=== PATIENT | female | born 1970 | race Caucasian/White ===

== ENCOUNTER 2018-11-22 08:00 | Outpatient (CLI) | payer OTHER ==
[2018-11-22 19:15] LABS: BASOPHILS # (AUTO) 0.1 10^3/uL (0.0-0.1); BASOPHILS % (AUTO) 0.7 %; EOSINOPHILS # (AUTO) 0.1 10^3/uL (0.0-0.7); EOSINOPHILS % (AUTO) 1.8 %; HGB - HEMOGLOBIN 13.2 g/dL (12.0-16.0); LYMPHOCYTES # (AUTO) 2.7 10^3/uL (1.5-3.5); LYMPHOCYTES % (AUTO) 35.1 %; MEAN CORPUSCULAR HEMOGLOBIN 31.2 pg (27.0-31.0); MEAN CORPUSCULAR HGB CONC 32.5 g/dL (32.0-36.0); MEAN CORPUSCULAR VOLUME 96.2 fL (81.0-99.0); MEAN PLATELET VOLUME 8.7 fL (7.9-10.8); MONOCYTES # (AUTO) 0.4 10^3/uL (0.0-1.0); MONOCYTES % (AUTO) 5.9 %; NEUTROPHILS # (AUTO) 4.3 10^3/uL (1.5-6.6); NEUTROPHILS % (AUTO) 56.5 %; PLT - PLATELET COUNT 282 10^3/uL (130-450); RED BLOOD COUNT 4.22 10^6/uL (4.20-5.40); RED CELL DISTRIBUTION WIDTH 13.1 % (12.0-15.0); WHITE BLOOD COUNT 7.6 x10^3/uL (4.8-10.8)
[2018-11-22 19:34] LABS: ALBUMIN/GLOBULIN RATIO 1.4 (1.0-2.2); ALKALINE PHOSPHATASE 37 IU/L (42-121); ALT ALANINE AMINOTRANSFERASE 16 IU/L (10-60); AST ASPARTATE AMINOTRANSFERASE 21 IU/L (10-42); BILIRUBIN,TOTAL 0.5 mg/dL (0.2-1.0); BUN - BLOOD UREA NITROGEN 21 mg/dL (6-20); CALCIUM 8.9 mg/dL (8.5-10.3); CARBON DIOXIDE - CO2 25 mmol/L (21-32); CHLORIDE 102 mmol/L (101-111); CHOL/HDL RATIO 2.6 (<4.4); CHOLESTEROL 161 mg/dL; CREATININE 0.5 mg/dL (0.4-1.0); GFR - MDRD 132 (>89); GLUCOSE 90 mg/dL (70-100); HDL CHOLESTEROL 61 mg/dL; LDL CHOLESTEROL,CALCULATED 86 mg/dL; LDL/HDL RATIO 1.4 (<4.4); SODIUM 134 mmol/L (135-145); TOTAL PROTEIN 6.8 g/dL (6.7-8.2); VLDL CHOLESTEROL 14 mg/dL
[2018-11-22 20:09] LABS: CRP - C-REACTIVE PROTEIN < 1.0 mg/dL (0-1.0)
[2018-11-22 20:16] LABS: RHEUMATOID FACTOR NEGATIVE (Negative)
== END 2018-11-22 23:59 | disposition home or self-care (01) ==
LOC: LAB.WCP 08:00
PROVIDERS: ATTEND Nurse Practitioner
DX: Z00.00 Encounter for general adult medical examination without abnormal findings (principal); Z13.220 Encounter for screening for lipoid disorders; Z13.29 Encounter for screening for other suspected endocrine disorder; M35.3 Polymyalgia rheumatica
CPT/HCPCS: 36415; 80053; 80061; 83721; 84443; 85025; 85651; 86140; 86430

== ENCOUNTER 2019-01-21 08:34 | Outpatient (CLI) | payer OTHER ==
--- NOTE | 2019-01-22 08:15 | Mammography Report ---
Reason: SCREENING MAMMO Procedure Date: 01/21/2019 Accession Number: [id number] / [id number] Procedure: MELBA - Screening Mammo w/Leonel CPT Code: FULL RESULT: EXAM: Screening Mammo w/Leonel DATE: 01/21/2019 9:23 AM CLINICAL HISTORY: Routine screening. No reported personal or family history of breast cancer. TECHNIQUE: (B) - Bilateral Bilateral CC and MLO views were obtained. COMPARISON: None. Baseline exam PARENCHYMAL PATTERN: (A) - The breasts demonstrate scattered fibroglandular densities bilaterally. FINDINGS: Bilateral breasts: There are no suspicious masses, calcifications, or areas of distortion. IMPRESSION: Negative examination. BI-RADS category1 RECOMMENDATION: (ANNUAL) - Recommend routine annual screening mammography. BI-RADS CATEGORY: (1) - Negative STANDARD QUALIFYING STATEMENTS: 1. This examination was not reviewed with the aid of Computer-Aided Detection (CAD). 2. A negative or benign imaging report should not preclude biopsy if clinically suspicious findings are present. 3. Dense breasts may obscure an underlying neoplasm. 4. This examination was reviewed with the aid of 3D breast imaging (tomosynthesis).
== END 2019-01-21 08:35 | disposition home or self-care (01) ==
LOC: DI 08:34
DX: Z12.31 Encounter for screening mammogram for malignant neoplasm of breast (principal)
CPT/HCPCS: 77063; 77067

== ENCOUNTER 2019-01-21 08:37 | Outpatient (CLI) | payer OTHER ==
--- NOTE | 2019-01-21 13:39 | Ultrasound Report ---
Reason: SHOULDER JOINT PAIN,RIGHT Procedure Date: 01/21/2019 Accession Number: [id number] / [id number] Procedure: US - Ext Limited Non Vascular CPT Code: FULL RESULT: EXAM: RIGHT/LEFT UPPER EXTREMITY ULTRASOUND - LIMITED EXAM DATE: 01/21/2019 09:15 AM. CLINICAL HISTORY: Shoulder joint pain, right. Evaluate the biceps tendon and tendon insertion for evidence of injury or tear. COMPARISON: None. TECHNIQUE: Real-time scanning was performed with static images obtained. FINDINGS: The bicipital tendon is located within the tendon groove. There is focal increased volume and echotexture to the superior biceps tendon in the upper tendon groove consistent with tendinopathy. There is focal irregularity and fluid at the proximal musculotendinous junction likely indicating minor partial tearing. There is increased volume and indistinctness to the distal musculotendinous junctions and tendinous insertion on the radial tuberosity, again consistent with tendinopathy. Muscle belly appears normal in echotexture and volume. IMPRESSION: 1. Findings consistent with tendinopathy of the proximal biceps tendon in the upper bicipital tendon groove. 2. Probable minor tearing at the proximal musculotendinous junction. 3. Findings consistent with tendinopathy of the biceps tendon insertion on the radial tuberosity. RADIA
== END 2019-01-21 08:38 | disposition home or self-care (01) ==
LOC: DI 08:37
PROVIDERS: ATTEND Nurse Practitioner
DX: M25.511 Pain in right shoulder (principal); M85.89 Other specified disorders of bone density and structure, multiple sites; E89.40 Asymptomatic postprocedural ovarian failure
CPT/HCPCS: 76882; 77080

== ENCOUNTER 2019-01-21 13:10 | Outpatient (CLI) | payer OTHER ==
--- NOTE | 2019-01-21 17:20 | DEXA Report ---
Reason: ANAND,SURGICAL Procedure Date: 01/21/2019 Accession Number: [id number] / [id number] Procedure: DEX - Dexa Spine and/or Hip CPT Code: FULL RESULT: EXAM: Dexa Spine and/or Hip DATE: 01/21/2019 1:51 PM CLINICAL HISTORY: MENOPAUSE,SURGICAL TECHNIQUE: Dual energy x-ray absorptiometry (DXA) was performed on a [employer] System. Regions measured are the AP Spine, femoral neck, and if needed forearm. COMPARISON: None. In accordance with the International Society for Clinical Densitometry (ISCD) guidelines, data from previous exams may be reanalyzed using current recommendations and techniques. This is done to allow a more accurate basis for comparison with the current study. FINDINGS: The data for the lumbar spine is as follows: BMD (g/cm/cm) T-SCORE Z-SCORE REGION L1 0.988 -1.2 -0.8 L2 1.011 -1.6 -1.2 L3 1.005 -1.6 -1.3 L4 1.016 -1.5 -1.2 TOTAL 1.006 -1.5 -1.1 NOTE: All evaluable vertebrae are used for classification The data for the hip is as follows: BMD (g/cm/cm) T-SCORE Z-SCORE REGION Neck 0.807 -1.7 -0.9 TOTAL 0.835 -1.4 -0.9 NOTE: The femoral neck or total proximal femur, whichever is lowest, is used for classification. IMPRESSION: THE WHO CLASSIFICATION BASED ON THE INTERNATIONAL REFERENCE STANDARD IS OSTEOPENIA. THE FRACTURE RISK IS INCREASED. RECOMMENDATION: Patients with diagnosis of osteoporosis or osteopenia should have regular bone mineral density assessment. For those eligible for Medicare, routine testing is allowed once every 2 years. Testing frequency can be increased for patients who have rapidly progressing disease or for those who are receiving medical therapy to restore bone mass. COMMENT: World Health Organization (WHO) definitions for osteoporosis and osteopenia: NORMAL BMD: T-score at -1.0 or higher, fracture risk is low OSTEOPENIA BMD: T-score between -1.0 and -2.5, fracture risk is increased. OSTEOPOROSIS BMD: T-score at -2.5 or lower, fracture risk is high. National Osteoporosis Foundation recommends: 1. Obtain adequate dietary calcium (at least 1200 mg per day) and vitamin D (400-800 international units per day). 2. Participate, as appropriate, in regular weightbearing and muscle-strengthening exercise. 3. Avoid tobacco use and reduce alcohol and caffeine intake. 4. For more detailed information see the website at www.NOF.org.
== END 2019-01-21 13:11 | disposition home or self-care (01) ==
LOC: DI 13:10
PROVIDERS: ATTEND Nurse Practitioner
DX: M85.89 Other specified disorders of bone density and structure, multiple sites (principal)
CPT/HCPCS: 77080

== ENCOUNTER 2019-03-06 07:09 | Outpatient (CLI) | payer OTHER ==
--- NOTE | 2019-03-06 15:49 | MRI Report ---
Reason: SHOULDER JOINT PAIN, RIGHT Procedure Date: 03/06/2019 Accession Number: [id number] / [id number] Procedure: MRI - Shoulder RT W/O CPT Code: FULL RESULT: EXAM: RIGHT SHOULDER MRI WITHOUT CONTRAST EXAM DATE: 03/06/2019 08:10 AM. CLINICAL HISTORY: Limited and painful range of motion. No history of trauma. Pain gradually worsening over time. COMPARISON: SHOULDER 3 VIEW RT 11/15/2018 10:11 AM. TECHNIQUE: Multiplanar, multisequence T1-weighted and fluid-sensitive sequences of the shoulder without contrast. Other: None. FINDINGS: Acromioclavicular Region: The acromion is type II. The acromioclavicular joint is unremarkable. There is a small bursal effusion consistent with bursitis. Glenohumeral Region: No subluxation. No effusion or loose bodies. The articular cartilage is unremarkable. Bone Marrow: No fracture, marrow edema or bone lesions. Labrum: The labrum is unremarkable on this nonarthrographic study. Musculature/Rotator Cuff: Supraspinatus, infraspinatus and subscapularis appear unremarkable. No edema or fatty atrophy. Biceps Tendon: The long head of the biceps tendon and biceps aster are intact. Other: The subcutaneous tissues are unremarkable. IMPRESSION: No MRI abnormalities in the shoulder. RADIA
== END 2019-03-06 07:10 | disposition home or self-care (01) ==
LOC: DI 07:09
PROVIDERS: ATTEND Orthopaedic Surgery Sports Medicine
DX: M25.511 Pain in right shoulder (principal)

== ENCOUNTER 2019-06-06 08:00 | Outpatient (CLI) | payer OTHER ==
[2019-06-10 04:36] LABS: B. PARAPERTUSSIS DNA NOT DETECTED; SOURCE SWAB
== END 2019-06-06 23:59 | disposition home or self-care (01) ==
LOC: LAB.R 08:00
PROVIDERS: ATTEND Nurse Practitioner
DX: Z20.9 Contact with and (suspected) exposure to unspecified communicable disease (principal)
CPT/HCPCS: 87801

== ENCOUNTER 2019-07-02 17:17 | Emergency (ER) | payer OTHER ==
[2019-07-02 17:59] LABS: BASOPHILS # (AUTO) 0.1 10^3/uL (0.0-0.1); BASOPHILS % (AUTO) 0.5 %; EOSINOPHILS # (AUTO) 0.1 10^3/uL (0.0-0.7); EOSINOPHILS % (AUTO) 1.3 %; LYMPHOCYTES # (AUTO) 3.6 10^3/uL (1.5-3.5); LYMPHOCYTES % (AUTO) 34.8 %; MEAN CORPUSCULAR HEMOGLOBIN 30.7 pg (27.0-31.0); MEAN CORPUSCULAR HGB CONC 32.8 g/dL (32.0-36.0); MEAN CORPUSCULAR VOLUME 93.6 fL (81.0-99.0); MEAN PLATELET VOLUME 9.9 fL (7.9-10.8); MONOCYTES # (AUTO) 0.6 10^3/uL (0.0-1.0); NEUTROPHILS % (AUTO) 57.1 %; PLT - PLATELET COUNT 292 10^3/uL (130-450); RED BLOOD COUNT 3.91 10^6/uL (4.20-5.40); RED CELL DISTRIBUTION WIDTH 12.3 % (12.0-15.0); WHITE BLOOD COUNT 10.4 x10^3/uL (4.8-10.8)
[2019-07-02] MEDS ORDERED: ASPIRIN CHEW 81 MG TABLET PO STA (18:04)
--- NOTE | 2019-07-02 18:04 | ED Physician Documentation ---
PD HPI CHEST PAIN - Stated complaint Stated Complaint: CP/SOA/TIRED/DIZZY - Chief complaint Chief Complaint: Cardiac - History obtained from History obtained from: Patient (49-year-old woman with history of restless leg syndrome, occasional back pain and migraines presents with 2 weeks of atypical chest pain, its 3 30 second "contraction" in her mid chest that is nonradiating. It happens several times a day. There is no particular pattern to it. It is not exertional. It does not seem to be related to eating. Prior to 2 weeks ago she is never had it before. No recent alcohol use.She is mildly short of breath with it. Denies a cough. No nausea. She is a little dizzy with it.No family history of coronary disease.) Review of Systems Ten Systems: 10 systems reviewed and negative Constitutional: reports: Fatigue. denies: Fever, Chills Nose: denies: Rhinorrhea / runny nose, Congestion Throat: denies: Sore throat Cardiac: reports: Chest pain / pressure. denies: Palpitations, Pedal edema, Calf pain Respiratory: reports: Dyspnea. 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 - Allergies Allergies/Adverse Reactions: Allergies Allergy/AdvReac Type Severity Reaction Status Date / Time Penicillins Allergy Unknown Verified 07/02/19 17:29 Sulfa (Sulfonamide Allergy Unknown Verified 07/02/19 17:29 Antibiotics) - Social History Does the pt smoke?: No Smoking Status: Never smoker Does the pt drink ETOH?: No Does the pt have substance abuse?: No - Family History Family history: reports: Non contributory - Immunizations Immunizations are current?: Yes PD ED PE NORMAL - Vitals Vital signs reviewed: Yes - General General: Alert and oriented X 3, No acute distress - HEENT HEENT: PERRL - Neck Neck: Supple, no meningeal sign, No bony TTP - Cardiac Cardiac: RRR, No murmur - Respiratory Respiratory: No respiratory distress, Other (Mild anterior chest wall ten derness) - Abdomen Abdomen: Non tender - Derm Derm: Normal color, Warm and dry - Extremities Extremities: No edema, No calf tenderness / cord - Neuro Neuro: Alert and oriented X 3, Normal speech Results - Vitals Vitals: Vital Signs - 24 hr 07/02/19 07/02/19 07/02/19 17:19 19:06 19:51 Temperature 36.5 C Heart Rate 102 H 87 82 Respiratory 18 18 16 Rate Blood Pressure 136/80 H 118/80 116/81 H O2 Saturation 100 99 100 07/02/19 07/02/19 07/02/19 20:12 20:25 20:37 Temperature Heart Rate 104 H Respiratory 17 22 16 Rate Blood Pressure 125/80 O2 Saturation 100 99 07/02/19 07/02/19 20:45 20:51 Temperature 36.5 C Heart Rate 90 87 Respiratory 16 20 Rate Blood Pressure 128/74 128/74 O2 Saturation 100 100 Oxygen O2 Source Room air - EKG (time done) 1722 Rate: Rate (enter#) (110) Rhythm: Sinus tachycardia [place]: Normal Intervals: Normal [place] QRS: Normal Ischemia: Non specific changes Computer interpretation: Agree with computer - Labs Labs: Laboratory Tests 07/02/19 07/02/19 07/02/19 17:30 17:30 17:30 WBC 10.4 RBC 3.91 L Hgb 12.0 Hct 36.6 L MCV 93.6 MCH 30.7 MCHC 32.8 RDW 12.3 Plt Count 292 MPV 9.9 Neut # (Auto) 6.0 Lymph # (Auto) 3.6 H [place] # (Auto) 0.6 Eos # (Auto) 0.1 Baso # (Auto) 0.1 Absolute Nucleated RBC 0.00 Nucleated RBC % 0.0 D-Dimer Sodium 138 Potassium 3.7 Chloride 101 Carbon Dioxide 26 Anion Gap 11.0 BUN 20 Creatinine 0.6 Estimated GFR (MDRD) 106 Glucose 89 Calcium 9.0 Total Bilirubin 0.7 AST 23 ALT 27 Alkaline Phosphatase 41 L Troponin I High Sens < 2.3 L Total Protein 7.2 Albumin 4.3 Globulin 2.9 Albumin/Globulin Ratio 1.5 Lipase 23 07/02/19 07/02/19 17:30 19:37 WBC RBC Hgb Hct MCV MCH MCHC RDW Plt Count MPV Neut # (Auto) Lymph # (Auto) [place] # (Auto) Eos # (Auto) Baso # (Auto) Absolute Nucleated RBC Nucleated RBC % D-Dimer 213.0 Sodium Potassium Chloride Carbon Dioxide Anion Gap BUN Creatinine Estimated GFR (MDRD) Glucose Calcium Total Bilirubin AST ALT Alkaline Phosphatase Troponin I High Sens < 2.3 L Total Protein Albumin Globulin Albumin/Globulin Ratio Lipase - Rads (name of study) CT Chest Radiology: EMP read contemporaneously (NAD) 1v Chest Radiology: EMP read contemporaneously (2.7 cm mass abutting the right heart border, recommend further imaging) PD MEDICAL DECISION MAKING - ED course ED course: Chest pain of almost 2 weeks duration. EKG was nonischemic. She was somewhat tachycardic but she says her usual resting heart rate is about 105 and feels like this is her baseline. But because of that a d-dimer was also run a negative. 2- troponins in the department. Chest x-ray did show potential mass near the right heart border this was which did not show a corresponding lesion. Radiologist felt it was likely "confluence of shadows." Departure - Departure Disposition: 01 Home, Self Care Clinical Impression: Atypical chest pain Condition: Good Record reviewed to determine appropriate education?: Yes Instructions: ED Chest Pain Atypical Unkn Cause Comments: Follow-up with your doctor, next available appointment. Discussed follow-up stress testing. Return if chest pain is worse, more constant, or changes in any way. Take a baby aspirin a day until you follow-up with your doctor. Discharge Date/Time: 07/02/19 21:15
[2019-07-02 18:12] LABS: ALBUMIN 4.3 g/dL (3.2-5.5); ALBUMIN/GLOBULIN RATIO 1.5 (1.0-2.2); BILIRUBIN,TOTAL 0.7 mg/dL (0.2-1.0); CREATININE 0.6 mg/dL (0.4-1.0); TOTAL PROTEIN 7.2 g/dL (6.7-8.2)
--- NOTE | 2019-07-02 18:19 | XRAY Report ---
Reason: chest pain Procedure Date: 07/02/2019 Accession Number: [id number] / [id number] Procedure: XR - Chest 1 View X-Ray CPT Code: 57685 FULL RESULT: EXAM: CHEST RADIOGRAPHY EXAM DATE: 07/02/2019 05:59 PM. CLINICAL HISTORY: Chest pain. COMPARISON: None. TECHNIQUE: 1 view. FINDINGS: LUNGS: Lungs are clear. PLEURA: No significant pleural effusion. No clinically significant pneumothorax. MEDIASTINUM: Question 2.7 cm round density overlying the right heart border.The heart is normal in size. BONES: No displaced acute fracture. No suspicious osseous lesions. IMPRESSION: Question 2.7 cm round density overlying the right heart border. Recommend lateral view or CT chest with IV contrast for further evaluation. RADIA
[2019-07-02] MEDS ORDERED: IOVERSOL 320 100 ML VIAL IVP ONE ×2 (20:28→20:40)
[2019-07-02 20:52] VITALS: BP 128/74
--- NOTE | 2019-07-02 21:30 | CT Report ---
Reason: Lung mass (IV only, NOT PE protocol Procedure Date: 07/02/2019 Accession Number: [id number] / [id number] Procedure: CT - CHEST W CPT Code: FULL RESULT: EXAM: CT CHEST EXAM DATE: 07/02/2019 08:39 PM. CLINICAL HISTORY: Abnormal chest x-ray. Question lung mass. COMPARISONS: CHEST 1 VIEW 07/02/2019 5:46 PM. TECHNIQUE: Routine helical CT imaging was performed through the chest. IV contrast: None. Reconstructions: Coronal and sagittal. In accordance with CT protocol optimization, one or more of the following dose reduction techniques were utilized for this exam: automated exposure control, adjustment of mA and/or KV based on patient size, or use of iterative reconstructive technique. FINDINGS: Imaged neck: Unremarkable Central airways: Unremarkable Lung parenchyma: Calcified granuloma in the right middle lobe. There are scattered foci of scarring. No suspicious pulmonology. Pleural effusion: None Pneumothorax: None Heart: Unremarkable Aorta: Unremarkable Pulmonary arteries: Unremarkable Other: Small fat-containing right Bochdalek hernia. Adenopathy: None Imaged abdomen: Unremarkable Sidewalls: Unremarkable. Bones: No suspicious osseous lesions. IMPRESSION: 1. No suspicious mass. Findings on chest x-ray likely represent confluence of normal shadows. 2. Chronic finding detailed above. RADIA
== END 2019-07-02 21:15 | disposition home or self-care (01) ==
LOC: ED 17:17
DX: R07.89 Other chest pain (principal)
CPT/HCPCS: 36415; 71045; 71260; 80053; 83690; 84484; 85025; 85379; 93005; 99283; 99284; A9270; Q9967

== ENCOUNTER 2019-08-19 06:38 | Outpatient (CLI) | payer OTHER ==
--- NOTE | 2019-08-19 08:14 | Ultrasound Report ---
Reason: ABDOMINAL WALL PAIN Procedure Date: 08/19/2019 Accession Number: [id number] / [id number] Procedure: US - Abdomen Limited CPT Code: FULL RESULT: EXAM: ABDOMEN ULTRASOUND LIMITED, RUQ EXAM DATE: 08/19/2019 06:49 AM. CLINICAL HISTORY: Abdominal wall pain. COMPARISON: None. TECHNIQUE: Real-time scanning was performed with static images obtained. FINDINGS: Focused ultrasound performed of the patient's area of concern in left upper quadrant of the abdomen. No discrete mass or abdominal wall hernia detected. No free fluid or cystic lesions. No abnormal skin thickening. IMPRESSION: No focal abnormalities detected in the area of concern on current imaging. RADIA
== END 2019-08-19 06:39 | disposition home or self-care (01) ==
LOC: DI 06:38
PROVIDERS: ATTEND Nurse Practitioner
DX: R10.9 Unspecified abdominal pain (principal)
CPT/HCPCS: 76705

== ENCOUNTER 2019-11-06 11:31 | Outpatient (CLI) | payer OTHER ==
[2019-11-06 11:57] LABS: BASOPHILS % (AUTO) 0.5 %; EOSINOPHILS # (AUTO) 0.1 10^3/uL (0.0-0.7); EOSINOPHILS % (AUTO) 0.6 %; HGB - HEMOGLOBIN 14.2 g/dL (12.0-16.0); LYMPHOCYTES # (AUTO) 2.1 10^3/uL (1.5-3.5); LYMPHOCYTES % (AUTO) 27.1 %; MEAN CORPUSCULAR HEMOGLOBIN 31.1 pg (27.0-31.0); MEAN CORPUSCULAR HGB CONC 32.9 g/dL (32.0-36.0); MEAN CORPUSCULAR VOLUME 94.5 fL (81.0-99.0); MEAN PLATELET VOLUME 9.5 fL (7.9-10.8); MONOCYTES # (AUTO) 0.4 10^3/uL (0.0-1.0); MONOCYTES % (AUTO) 5.4 %; NEUTROPHILS # (AUTO) 5.2 10^3/uL (1.5-6.6); PLT - PLATELET COUNT 300 10^3/uL (130-450); RED BLOOD COUNT 4.57 10^6/uL (4.20-5.40); RED CELL DISTRIBUTION WIDTH 11.9 % (12.0-15.0); WHITE BLOOD COUNT 7.8 x10^3/uL (4.8-10.8)
[2019-11-06 12:14] LABS: ALBUMIN 4.4 g/dL (3.2-5.5); ALBUMIN/GLOBULIN RATIO 1.3 (1.0-2.2); BILIRUBIN,TOTAL 0.6 mg/dL (0.2-1.0); CREATININE 0.5 mg/dL (0.4-1.0); TOTAL PROTEIN 7.7 g/dL (6.7-8.2)
[2019-11-06 12:30] LABS: THYROID STIMULATING HORMONE 1.26 uIU/mL (0.34-5.60)
[2019-11-06 12:32] LABS: FREE T4 (FREE THYROXINE) 0.74 ng/dL (0.58-1.64)
== END 2019-11-06 11:32 | disposition home or self-care (01) ==
LOC: LAB 11:31
PROVIDERS: ATTEND Nurse Practitioner
DX: L29.9 Pruritus, unspecified (principal); R53.83 Other fatigue; R63.5 Abnormal weight gain
CPT/HCPCS: 36415; 80053; 82607; 84439; 84443; 84481; 85025; 86800

== ENCOUNTER 2020-05-04 08:00 | Outpatient (CLI) | payer OTHER ==
[2020-05-04 18:48] LABS: BASOPHILS % (AUTO) 0.6 %; EOSINOPHILS # (AUTO) 0.2 10^3/uL (0.0-0.7); EOSINOPHILS % (AUTO) 2.2 %; HGB - HEMOGLOBIN 12.9 g/dL (12.0-16.0); LYMPHOCYTES # (AUTO) 2.7 10^3/uL (1.5-3.5); LYMPHOCYTES % (AUTO) 37.2 %; MEAN CORPUSCULAR HEMOGLOBIN 30.2 pg (27.0-31.0); MEAN CORPUSCULAR HGB CONC 31.2 g/dL (32.0-36.0); MEAN PLATELET VOLUME 11.1 fL (7.9-10.8); MONOCYTES # (AUTO) 0.4 10^3/uL (0.0-1.0); MONOCYTES % (AUTO) 6.1 %; NEUTROPHILS # (AUTO) 3.9 10^3/uL (1.5-6.6); NEUTROPHILS % (AUTO) 53.6 %; PLT - PLATELET COUNT 218 10^3/uL (130-450); RED BLOOD COUNT 4.27 10^6/uL (4.20-5.40); RED CELL DISTRIBUTION WIDTH 12.4 % (12.0-15.0); WHITE BLOOD COUNT 7.2 x10^3/uL (4.8-10.8)
[2020-05-04 19:20] LABS: ALBUMIN 4.1 g/dL (3.2-5.5); ALBUMIN/GLOBULIN RATIO 1.4 (1.0-2.2); ALKALINE PHOSPHATASE 43 IU/L (42-121); ALT ALANINE AMINOTRANSFERASE 19 IU/L (10-60); AST ASPARTATE AMINOTRANSFERASE 20 IU/L (10-42); BILIRUBIN,TOTAL 0.3 mg/dL (0.2-1.0); BUN - BLOOD UREA NITROGEN 20 mg/dL (6-20); CALCIUM 8.9 mg/dL (8.5-10.3); CARBON DIOXIDE - CO2 28 mmol/L (21-32); CHLORIDE 103 mmol/L (101-111); CREATININE 0.6 mg/dL (0.4-1.0); GLUCOSE 97 mg/dL (70-100); SODIUM 140 mmol/L (135-145)
[2020-05-04 19:54] LABS: CRP - C-REACTIVE PROTEIN < 1.0 mg/dL (0-1.0)
== END 2020-05-04 23:59 | disposition home or self-care (01) ==
LOC: LAB.WCP 08:00
PROVIDERS: ATTEND Nurse Practitioner
DX: R60.0 Localized edema (principal); R53.83 Other fatigue; R63.5 Abnormal weight gain; M35.3 Polymyalgia rheumatica; Z79.899 Other long term (current) drug therapy
CPT/HCPCS: 36415; 80053; 83880; 85025; 85651; 86140

== ENCOUNTER 2020-05-04 08:00 | Outpatient (CLI) | payer OTHER ==
--- NOTE | 2020-05-04 12:35 | XRAY Report ---
Reason: SHORTNESS OF BREATH Procedure Date: 05/04/2020 Accession Number: [id number] / [id number] Procedure: WCP - Chest 2 View X-Ray CPT Code: 08918 Final Report FULL RESULT: PROCEDURE: Chest 2 View X-Ray INDICATIONS: SHORTNESS OF BREATH TECHNIQUE: 2 view(s) of the chest. COMPARISON: None. FINDINGS: Surgical changes and devices: None. Lungs and pleura: No pleural effusions or pneumothorax. Lungs are clear. Mediastinum: Mediastinal contours are normal. Heart size is normal. Bones and chest wall: No suspicious bony abnormalities. Soft tissues appear unremarkable. IMPRESSION: No acute cardiopulmonary pathology. Reviewed by: Mannie Silva MD on 05/04/2020 12:33 PM PDT Approved by: Mannie Silva MD on 05/04/2020 12:33 PM PDT Station ID: [id number]
== END 2020-05-04 23:59 | disposition home or self-care (01) ==
LOC: DI.WCP 08:00
PROVIDERS: ATTEND Nurse Practitioner
DX: R06.02 Shortness of breath (principal); R60.0 Localized edema; R53.83 Other fatigue; R63.5 Abnormal weight gain; M35.3 Polymyalgia rheumatica; Z79.899 Other long term (current) drug therapy
CPT/HCPCS: 36415; 71046; 80053; 83880; 85025; 85651; 86140

== ENCOUNTER 2020-05-15 11:03 | Outpatient (CLI) | payer OTHER ==
--- NOTE | 2020-05-15 12:09 | Ultrasound Report ---
PROCEDURE: Abdomen Limited INDICATIONS: ALCOHOL ABUSE, WEIGHT GAIN, PERIPHERAL EDEMA TECHNIQUE: Real-time focused scanning was performed of the abdomen, with image documentation. COMPARISON: 08.19.19 ultrasound examination. FINDINGS: Hepatic echotexture is coarsened. Gallbladder is within normal limits. No biliary ductal d ilatation. Visualized portions of the pancreas are within normal limits. Right kidney is within norm al limits without hydronephrosis. IMPRESSION: Findings suggestive of cirrhosis. Reviewed by: Ignacio Carlos MD on 05/15/2020 12:08 PM PDT Approved by: Ignacio Carlos MD on 05/15/2020 12:08 PM PDT Station ID: [id number]
== END 2020-05-15 11:04 | disposition home or self-care (01) ==
LOC: DI 11:03
PROVIDERS: ATTEND Nurse Practitioner
DX: R60.0 Localized edema (principal); R63.5 Abnormal weight gain; F10.10 Alcohol abuse, uncomplicated
CPT/HCPCS: 76705

== ENCOUNTER 2020-08-03 06:33 | Outpatient (CLI) | payer OTHER ==
--- NOTE | 2020-08-03 16:35 | Ultrasound Report ---
PROCEDURE: Abdomen Complete INDICATIONS: ABN CT, ABD PAIN, BLOATING TECHNIQUE: Real-time scanning was performed of the abdominal and retroperitoneal organs, with image documentatio n. COMPARISON: Ultrasound abdomen 05/15/2020, CT abdomen pelvis 05/23/2020. FINDINGS: Liver: Liver is enlarged measuring 17.2 cm with coarsened, echogenic appearance. Cyst is noted in th e right anterior lobe measuring 7 x 6 x 7 mm. Gallbladder: No stones are identified. Wall thickness is within normal limits measuring 1.6 mm. Biliary ducts: Intrahepatic bile ducts are non-dilated. Extrahepatic bile duct caliber measures 5.8 mm. Normal is 6-7 mm or less in diameter, or 10 mm or less post-cholecystectomy. Pancreas: Visualized portions of the pancreas are sonographically normal. Spleen: Spleen is normal in size and homogeneous in echotexture. Kidneys: Kidneys are normal in size and echotexture. Right kidney measures 11.1 cm long; left kidne y measures 10.2 cm long. No hydronephrosis or nephrolithiasis. No solid masses. Aorta: Visualized aorta is normal in caliber at less than 3 cm. Iliacs: Proximal common iliac arteries are normal in caliber at less than 2.5 cm. IVC: Intrahepatic inferior vena cava is patent. Miscellaneous: No free abdominal fluid. IMPRESSION: 1. Mildly enlarged liver with coarsened echogenic appearance suggests of fatty liver infiltration. Reviewed by: Chrissy Johnson MD on 08/03/2020 4:33 PM PDT Approved by: Chrissy Johnson MD on 08/03/2020 4:33 PM PDT Station ID: [id number]
== END 2020-08-03 06:34 | disposition home or self-care (01) ==
LOC: DI 06:33
PROVIDERS: ATTEND Student in an Organized Health Care Education/Training Program
DX: R10.9 Unspecified abdominal pain (principal); R14.0 Abdominal distension (gaseous); R93.5 Abnormal findings on diagnostic imaging of other abdominal regions, including retroperitoneum; R16.0 Hepatomegaly, not elsewhere classified; R60.0 Localized edema; R06.02 Shortness of breath; I35.1 Nonrheumatic aortic (valve) insufficiency
CPT/HCPCS: 76700; 93306

== ENCOUNTER 2020-08-17 08:00 | Outpatient (CLI) | payer OTHER | END 2020-08-17 23:59 | disposition home or self-care (01) | LOC: LAB.R 08:00 | PROVIDERS: ATTEND Family Medicine | DX: J02.0 Streptococcal pharyngitis (principal); R05 Cough; Z20.828 Contact with and (suspected) exposure to other viral communicable diseases | CPT/HCPCS: 87070 ==

== ENCOUNTER 2021-03-18 14:28 | Emergency (ER) | payer OTHER ==
[2021-03-18 15:16] LABS: BASOPHILS % (AUTO) 0.4 %; EOSINOPHILS # (AUTO) 0.1 10^3/uL (0.0-0.7); EOSINOPHILS % (AUTO) 1.4 %; HCT - HEMATOCRIT 40.7 % (37.0-47.0); HGB - HEMOGLOBIN 13.4 g/dL (12.0-16.0); LYMPHOCYTES # (AUTO) 3.5 10^3/uL (1.5-3.5); MEAN CORPUSCULAR HEMOGLOBIN 30.7 pg (27.0-31.0); MEAN CORPUSCULAR HGB CONC 32.9 g/dL (32.0-36.0); MEAN CORPUSCULAR VOLUME 93.3 fL (81.0-99.0); MEAN PLATELET VOLUME 9.8 fL (7.9-10.8); MONOCYTES # (AUTO) 0.5 10^3/uL (0.0-1.0); MONOCYTES % (AUTO) 5.3 %; NEUTROPHILS # (AUTO) 5.8 10^3/uL (1.5-6.6); NEUTROPHILS % (AUTO) 57.7 %; PLT - PLATELET COUNT 297 10^3/uL (130-450); RED BLOOD COUNT 4.36 10^6/uL (4.20-5.40); RED CELL DISTRIBUTION WIDTH 12.5 % (12.0-15.0)
[2021-03-18 15:41] LABS: CALCIUM 9.3 mg/dL (8.5-10.3); CREATININE 0.6 mg/dL (0.4-1.0); MAGNESIUM 2.3 mg/dL (1.7-2.8); POTASSIUM 4.1 mmol/L (3.5-5.0)
[2021-03-18] MEDS ORDERED: oxyCODONE 5 MG TABLET PO STA (15:51)
--- NOTE | 2021-03-18 15:53 | ED Physician Documentation ---
PD HPI LOWER EXT INJURY - Stated complaint Stated Complaint: RT LEG SWELLING - Chief complaint Chief Complaint: Ext Problem - History obtained from History obtained from: Patient (For over a year she has had progressive swelling of the right lower extremity. She has been referred to somebody to consider lymphedema. There was no injury. She is never had an ultrasound. She is had some weight gain along with this but diuretics have not been helpful. 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 - Present Medications Home Medications: Ambulatory Orders Medication Instructions Recorded Confirmed Ondansetron Odt [Zofran] 4 mg TL Q6H PRN #10 tablet 05/23/20 Albuterol Sulf [Ventolin Hfa 2 puffs PRN 03/18/21 Inhaler] Amitriptyline [Elavil] 1 tab QPM 03/18/21 03/18/21 Buspirone HCl 10 mg PO BID 03/18/21 03/18/21 DULoxetine [Cymbalta] 30 mg BID 03/18/21 03/18/21 Gabapentin [Neurontin] 300 mg PO HS 03/18/21 03/18/21 Omeprazole 40 mg PO DAILY 03/18/21 03/18/21 Oxycodone HCl/Acetaminophen 1 each PO Q6H PRN #20 tablet 03/18/21 [Percocet 7.5-325 mg Tablet] Pramipexole Di-HCl [Mirapex] 0.25 mg PO DAILY 03/18/21 03/18/21 Sucralfate [Carafate] 1 tablet PO ACHS 03/18/21 03/18/21 Sumatriptan Succinate [Imitrex] 1 tab PRN 03/18/21 oxyCODONE/ACET 5/325 [Percocet 5 1 tab PRN 03/18/21 mg/325 mg] - Allergies Allergies/Adverse Reactions: Allergies Allergy/AdvReac Type Severity Reaction Status Date / Time Sulfa (Sulfonamide Allergy Unknown Verified 07/02/19 17:29 Antibiotics) - Social History Does the pt smoke?: No Smoking Status: Never smoker Does the pt drink ETOH?: No Does the pt have substance abuse?: Yes - Immunizations Immunizations are current?: Yes - POLST Patient has POLST: No PD ED PE NORMAL - Vitals Vital signs reviewed: Yes - General General: Alert and oriented X 3, No acute distress - HEENT HEENT: PERRL, EOMI - Neck Neck: Supple, no meningeal sign, No bony TTP - Cardiac Cardiac: RRR, No murmur - Respiratory Respiratory: No respiratory distress, Clear bilaterally - Abdomen Abdomen: Non tender - Back Back: No CVA TTP, No spinal TTP - Derm Derm: Normal color, Warm and dry - Extremities Extremities: Other (Mild left and moderate right pedal edema, mild calf tenderness. No skin changes. Good pedal pulses.) - Neuro Neuro: Alert and oriented X 3, Normal speech Results - Vitals Vitals: Vital Signs - 24 hr 03/18/21 14:48 Temperature 36.2 C L Heart Rate 98 Respiratory 16 Rate Blood Pressure 137/86 H O2 Saturation 100 Oxygen O2 Source Room air - Labs Labs: Laboratory Tests 03/18/21 03/18/21 15:12 15:12 WBC 10.0 RBC 4.36 Hgb 13.4 Hct 40.7 MCV 93.3 MCH 30.7 MCHC 32.9 RDW 12.5 Plt Count 297 MPV 9.8 Neut # (Auto) 5.8 Lymph # (Auto) 3.5 [place] # (Auto) 0.5 Eos # (Auto) 0.1 Baso # (Auto) 0.0 Absolute Nucleated RBC 0.00 Nucleated RBC % 0.0 Sodium 137 Potassium 4.1 Chloride 100 L Carbon Dioxide 27 Anion Gap 10.0 BUN 15 Creatinine 0.6 Estimated GFR (MDRD) 106 Glucose 97 Calcium 9.3 Magnesium 2.3 PD MEDICAL DECISION MAKING - ED course ED course: I am prescribing a short course of short-acting opioid pain medication for this patient. I have reviewed the patients DIANETICIST and no concerning findings were noted. I have discussed that the opioids are for short term therapy only, and will not be refilled from the ED. Departure - Departure Disposition: 01 Home, Self Care Clinical Impression: Pain of lower extremity Qualifiers: Laterality: right Qualified Code(s): M79.604 - Pain in right leg Condition: Good Record reviewed to determine appropriate education?: Yes Instructions: ED Edema Legs Bilateral Prescriptions: Oxycodone HCl/Acetaminophen [Percocet 7.5-325 mg Tablet] 1 each PO Q6H PRN #20 tablet PRN Reason: Pain Comments: Thankfully there is no evidence of kidney dysfunction, or blood clot today. Ultrasound demonstrated normal flow in all of the veins of your right lower extremity. Follow-up as scheduled. Return for new or worsening symptoms. I am prescribing a short course of narcotic pain medication for you. These are potentially dangerous and addictive medications that should be used carefully. These medications may constipate you. Take an [id number] stool softener (docusate) twice daily with plenty of water while taking these medications. If you go 24 hours without a bowel movement, take [id number] miralax, per package instructions. Do not drink or drive while taking these medications. If you received narcotic or sedating medications while in the emergency department, do not drive for 24 hours. Store this medication in a safe, secure place and out of reach of children. It is a violation of federal law to give or sell this medication to another person or to use in a manner other than prescribed. The ED will not refill narcotic prescriptions, including prescriptions lost or stolen. To dispose of unwanted medications: 1. [facility] [address] in [place] has a medication drop box. They accept prescription medications (in p ill form) Sunday through Sunday 9:00 a.m. to 5:00 p.m. 2. The [facility] [employer] accepts prescription medications (in pill form only) for disposal year round. Call for more information. 3. Contact the [facility] for the next [facility] sponsored prescription drug collection event. , [phone], or [phone]; Note that many narcotic pain relievers also contain Tylenol/acetaminophen. Please ensure that your total dose of acetaminophen from all sources does not exceed 3 g (3000 mg) per day.
[2021-03-18 17:10] VITALS: BP 119/64
--- NOTE | 2021-03-18 17:51 | Ultrasound Report ---
PROCEDURE: Duplex Ext Veins Right INDICATIONS: Reg leg pain TECHNIQUE: Real-time imaging, as well as color and pulse Doppler interrogation, were performed of the lower extr emity deep veins from the inguinal ligament to the popliteal fossa. COMPARISON: None. FINDINGS: The deep veins are normally compressible, and free of intraluminal thrombus. Color and pu lse Doppler demonstrate normal phasic intraluminal flow. There is normal augmentation response to di stal compression maneuver. Duplicated femoral veins. IMPRESSION: No right lower extremity DVT. Reviewed by: Sharan Bunch MD on 03/18/2021 5:50 PM PDT Approved by: Sharan Bunch MD on 03/18/2021 5:50 PM PDT Station ID: [id number]
== END 2021-03-18 17:20 | disposition home or self-care (01) ==
LOC: ED 14:28
DX: M79.604 Pain in right leg (principal)
CPT/HCPCS: 36415; 80048; 83735; 85025; 93971; 99283; 99284; A9270

== ENCOUNTER 2021-05-09 09:15 | Outpatient (CLI) | payer OTHER | END 2021-05-09 23:59 | disposition home or self-care (01) | LOC: LAB.N 09:15 | PROVIDERS: ATTEND Physician Assistant Medical | DX: U07.1 COVID-19 (principal) ==

== ENCOUNTER 2021-05-27 10:46 | Emergency (ER) | payer OTHER ==
--- NOTE | 2021-05-27 11:46 | XRAY Report ---
PROCEDURE: Chest 1 View X-Ray INDICATIONS: C+ TECHNIQUE: One view of the chest was acquired. COMPARISON: 05/04/2020 FINDINGS: Surgical changes and devices: None. Lungs and pleura: No pleural effusions or pneumothorax. Lungs are clear. Mediastinum: Mediastinal contours appear normal. Heart size is normal. Bones and chest wall: No suspicious bony lesions. Overlying soft tissues appear unremarkable. IMPRESSION: No evidence acute pulmonary process. Reviewed by: Gabriele Cat MD on 05/27/2021 11:45 AM PDT Approved by: Gabriele Cat MD on 05/27/2021 11:45 AM PDT Station ID: [id number]
[2021-05-27] MEDS ORDERED: SODIUM CHLORIDE 0.9% 1,000 ML IV STA (11:47)
[2021-05-27 11:48] LABS: BASOPHILS # (AUTO) 0.1 10^3/uL (0.0-0.1); BASOPHILS % (AUTO) 0.7 %; EOSINOPHILS # (AUTO) 0.1 10^3/uL (0.0-0.7); EOSINOPHILS % (AUTO) 1.7 %; HCT - HEMATOCRIT 39.1 % (37.0-47.0); HGB - HEMOGLOBIN 12.8 g/dL (12.0-16.0); LYMPHOCYTES # (AUTO) 2.5 10^3/uL (1.5-3.5); LYMPHOCYTES % (AUTO) 30.3 %; MEAN CORPUSCULAR HEMOGLOBIN 30.8 pg (27.0-31.0); MEAN CORPUSCULAR HGB CONC 32.7 g/dL (32.0-36.0); MEAN PLATELET VOLUME 9.3 fL (7.9-10.8); MONOCYTES # (AUTO) 0.6 10^3/uL (0.0-1.0); MONOCYTES % (AUTO) 7.6 %; NEUTROPHILS # (AUTO) 4.9 10^3/uL (1.5-6.6); NEUTROPHILS % (AUTO) 59.5 %; PLT - PLATELET COUNT 307 10^3/uL (130-450); RED BLOOD COUNT 4.16 10^6/uL (4.20-5.40); RED CELL DISTRIBUTION WIDTH 12.5 % (12.0-15.0); WHITE BLOOD COUNT 8.3 x10^3/uL (4.8-10.8)
[2021-05-27] MEDS ORDERED: DEXAMETHASONE 10 MG/ML VIAL PO STA (12:00)
--- NOTE | 2021-05-27 12:01 | ED Physician Documentation ---
History of Present Illness - Stated complaint Stated Complaint: C+/HIGH HR/COUGH - Chief complaint Chief Complaint: Resp - Additonal information Additional information: 50-year-old female sent to the emergency department from the walk-in clinic for evaluation of cough and desaturations. She is unvaccinated for COVID-19 and tested positive on 09 May. Since then she has had persistence of cough and wheeze. She reports that when she coughs her oxygen saturations will decline to about 86%. She was seen at a local walk-in clinic today and received a prescription for some cough medicine but due to the reported hypoxia with coughing was advised to come to the ER. Initially her heart rate was 132 on presentation but at rest in the room her heart rate is about 100-1 10. She appears to be in no distress. She denies tobacco use but reports a history of asthma and chronic bronchitis. Is not compliant with her medications and does not know the name of the long ancting medications she is supposed to be on Review of Systems Ears: reports: Reviewed and negative Nose: reports: Congestion Throat: reports: Reviewed and negative Cardiac: denies: Chest pain / pressure, Palpitations Respiratory: reports: Dyspnea, Cough GI: denies: Abdominal Pain, Nausea, Vomiting : reports: Reviewed and negative Skin: reports: Reviewed and negative Musculoskeletal: reports: Reviewed and negative PD PAST MEDICAL HISTORY - Past Medical History Respiratory: Asthma Neuro: Migraines GI: GERD Musculoskeletal: Osteoarthritis - Past Surgical History 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 - Present Medications Home Medications: Ambulatory Orders Medication Instructions Recorded Confirmed Ondansetron Odt [Zofran] 4 mg TL Q6H PRN #10 tablet 05/23/20 Albuterol Sulf [Ventolin Hfa 2 puffs PRN 03/18/21 Inhaler] Amitriptyline [Elavil] 1 tab QPM 03/18/21 03/18/21 Buspirone HCl 10 mg PO BID 03/18/21 03/18/21 DULoxetine [Cymbalta] 30 mg BID 03/18/21 03/18/21 Gabapentin [Neurontin] 300 mg PO HS 03/18/21 03/18/21 Omeprazole 40 mg PO DAILY 03/18/21 03/18/21 Oxycodone HCl/Acetaminophen 1 each PO Q6H PRN #20 tablet 03/18/21 [Percocet 7.5-325 mg Tablet] Pramipexole Di-HCl [Mirapex] 0.25 mg PO DAILY 03/18/21 03/18/21 Sucralfate [Carafate] 1 tablet PO ACHS 03/18/21 03/18/21 Sumatriptan Succinate [Imitrex] 1 tab PRN 03/18/21 oxyCODONE/ACET 5/325 [Percocet 5 1 tab PRN 03/18/21 mg/325 mg] Albuterol Sulf [Ventolin Hfa 1 - 2 puffs INH Q4HR PRN #1 inhaler 05/27/21 Inhaler] Azithromycin [Zithromax] 0 mg PO DAILY #6 tablet 05/27/21 dexAMETHasone [Decadron] 4 mg PO DAILY #4 tablet 05/27/21 - Allergies Allergies/Adverse Reactions: Allergies Allergy/AdvReac Type Severity Reaction Status Date / Time Sulfa (Sulfonamide Allergy Unknown Verified 05/27/21 11:00 Antibiotics) - Social History Does the pt smoke?: No Smoking Status: Never smoker Does the pt drink ETOH?: No Does the pt have substance abuse?: Yes - Immunizations Immunizations are current?: Yes - POLST Patient has POLST: No PD ED PE NORMAL - General General: Alert and oriented X 3, No acute distress, Well developed/nourished - HEENT HEENT: PERRL, Moist mucous membranes, Pharynx benign - Cardiac Cardiac: RRR, No murmur - Respiratory Respiratory: No respiratory distress, Clear bilaterally - Abdomen Abdomen: Normal bowel sounds, Soft, Non tender - Back Back: No CVA TTP, No spinal TTP - Derm Derm: Normal color, Warm and dry, No rash - Extremities Extremities: No deformity - Neuro Neuro: Alert and oriented X 3, study coordinator 2-12 intact, No motor deficit Eye Opening: Spontaneous Motor: Obeys Commands Verbal: Oriented GCS Score: 15 Results - Vitals Vitals: Vital Signs - 24 hr 05/27/21 05/27/21 10:55 12:03 Temperature 37.3 C Heart Rate 132 H 102 H Respiratory 22 16 Rate Blood Pressure 147/115 H 107/81 H O2 Saturation 99 99 Oxygen O2 Source Room air - Labs Labs: Laboratory Tests 05/27/21 05/27/21 11:43 11:43 WBC 8.3 RBC 4.16 L Hgb 12.8 Hct 39.1 MCV 94.0 MCH 30.8 MCHC 32.7 RDW 12.5 Plt Count 307 MPV 9.3 Neut # (Auto) 4.9 Lymph # (Auto) 2.5 [place] # (Auto) 0.6 Eos # (Auto) 0.1 Baso # (Auto) 0.1 Absolute Nucleated RBC 0.00 Nucleated RBC % 0.0 Sodium 138 Potassium 5.1 H Chloride 102 Carbon Dioxide 28 Anion Gap 8.0 BUN 16 Creatinine 0.5 Estimated GFR (MDRD) 131 Glucose 105 H Calcium 9.4 Total Bilirubin 0.6 AST 24 ALT 24 Alkaline Phosphatase 62 Total Protein 7.5 Albumin 4.3 Globulin 3.2 Albumin/Globulin Ratio 1.3 Lipase 21 L - Rads (name of study) CXR Radiology: Final report received (No evidence of acute pulmonary process) PD MEDICAL DECISION MAKING - ED course Complexity details: reviewed results, re-evaluated patient, d/w patient, d/w family ED course: 50-year-old female presents the emergency department with persistent cough and shortness of breath with hypoxia after coughing episodes. She tested positive for COVID-19 on 09 May she is not vaccinated. Here her chest x-ray is unremarkable though I question whether there may be a small right lower lobe infiltrate. Her room air saturations are 99% at rest her heart rate is in the high 90s to the low 100s. Unfortunately she continues to screen positive for COVID-19 on the respiratory PCR and she will need to remain in quarantine as she is still considered contagious. I have prescribed Decadron as well as albuterol to help with the cough and azithromycin. Patient and her were advised of appropriate return precautions for worsening symptoms fevers and shortness of breath advised to continue to maintain quarantine. Departure - Departure Disposition: 01 Home, Self Care Clinical Impression: Cough, Shortness of breath, COVID-19 virus infection Condition: Stable Record reviewed to determine appropriate education?: Yes Instructions: ED Bronchitis Asthmatic Prescriptions: Albuterol Sulf [Ventolin Hfa Inhaler] 1 - 2 puffs INH Q4HR PRN #1 inhaler PRN Reason: Shortness Of Air/Wheezing dexAMETHasone [Decadron] 4 mg PO DAILY #4 tablet Azithromycin [Zithromax] 0 mg PO DAILY #6 tablet Comments: Jessy unfortunately your nasal swab continues to test positive for COVID-19. Under current health guidelines you must continue to quarantine as you are considered to still be transmissible if enough viral load is in your nasopharynx to test positive. Family members living at home with you should also continue to quarantine until they can ensure that they do not have COVID-19. You should quarantine for at least an additional 10 days. I am prescribing a steroid to help with your cough as well as some albuterol which can help with the wheeze. Please fill the prescription for the antibiotics to help treat the bronchitis and cough. If at any point you feel that your sy mptoms are worsening, you have severe shortness of breath discolored lips or blue lips please return immediately to the ER for a second look.
[2021-05-27 12:04] LABS: ALBUMIN 4.3 g/dL (3.2-5.5); ALBUMIN/GLOBULIN RATIO 1.3 (1.0-2.2); BILIRUBIN,TOTAL 0.6 mg/dL (0.2-1.0); CALCIUM 9.4 mg/dL (8.5-10.3); CREATININE 0.5 mg/dL (0.4-1.0); POTASSIUM 5.1 mmol/L (3.5-5.0); TOTAL PROTEIN 7.5 g/dL (6.7-8.2)
[2021-05-27 13:00] LABS: B. PARAPERTUSSIS- RESP PCR PAN NOT DETECTED; B. PERTUSSIS- RESP PCR PANEL NOT DETECTED; C. PNEUMONIAE- RESP PCR PANEL NOT DETECTED; CORONAVIRUS 229E-RESP PCR NOT DETECTED; CORONAVIRUS HKU1-RESP PCR NOT DETECTED; CORONAVIRUS NL63-RESP PCR NOT DETECTED; CORONAVIRUS OC43-RESP PCR NOT DETECTED; HUMAN METAPNEUMOVIRUS NOT DETECTED; INFLUENZA A- RESP PCR PANEL NOT DETECTED; INFLUENZA B - RESP PCR PANEL NOT DETECTED; M. PNEUMONIAE- RESP PCR PANEL NOT DETECTED; PARAINFLUENZA VIRUS 1 NOT DETECTED; PARAINFLUENZA VIRUS 2 NOT DETECTED; PARAINFLUENZA VIRUS 3 NOT DETECTED; PARAINFLUENZA VIRUS 4 NOT DETECTED; RHINOVIRUS/ENTEROVIRUS NOT DETECTED; RSV- RESP PCR PANEL NOT DETECTED; SARS-CoV-2 -RESP PCR PANEL DETECTED
[2021-05-27 13:30] VITALS: BP 114/79
== END 2021-05-27 13:31 | disposition home or self-care (01) ==
LOC: ED 10:46
DX: U07.1 COVID-19 (principal)
CPT/HCPCS: 0202U; 36415; 71045; 80053; 83690; 85025; 99284

== ENCOUNTER 2021-11-24 12:06 | Outpatient (CLI) | payer OTHER ==
[2021-11-24 18:04] LABS: BASOPHILS % (AUTO) 0.5 %; EOSINOPHILS # (AUTO) 0.1 10^3/uL (0.0-0.7); EOSINOPHILS % (AUTO) 2.2 %; HCT - HEMATOCRIT 42.6 % (37.0-47.0); HGB - HEMOGLOBIN 13.9 g/dL (12.0-16.0); LYMPHOCYTES # (AUTO) 2.4 10^3/uL (1.5-3.5); LYMPHOCYTES % (AUTO) 40.3 %; MEAN CORPUSCULAR HEMOGLOBIN 30.7 pg (27.0-31.0); MEAN CORPUSCULAR HGB CONC 32.6 g/dL (32.0-36.0); MEAN PLATELET VOLUME 10.8 fL (7.9-10.8); MONOCYTES # (AUTO) 0.3 10^3/uL (0.0-1.0); MONOCYTES % (AUTO) 5.3 %; NEUTROPHILS % (AUTO) 51.5 %; PLT - PLATELET COUNT 285 10^3/uL (130-450); RED BLOOD COUNT 4.53 10^6/uL (4.20-5.40); RED CELL DISTRIBUTION WIDTH 12.5 % (12.0-15.0); WHITE BLOOD COUNT 5.9 x10^3/uL (4.8-10.8)
[2021-11-24 19:20] LABS: % IRON SATURATION 19 % (20-50); ALBUMIN 3.9 g/dL (3.2-5.5); ALBUMIN/GLOBULIN RATIO 1.2 (1.0-2.2); ALKALINE PHOSPHATASE 60 IU/L (42-121); ALT ALANINE AMINOTRANSFERASE 27 IU/L (10-60); AST ASPARTATE AMINOTRANSFERASE 30 IU/L (10-42); BILIRUBIN,TOTAL 0.5 mg/dL (0.2-1.0); BUN - BLOOD UREA NITROGEN 11 mg/dL (6-20); CALCIUM 9.1 mg/dL (8.5-10.3); CARBON DIOXIDE - CO2 29 mmol/L (21-32); CHLORIDE 96 mmol/L (101-111); CHOL/HDL RATIO 4.2 (<4.4); CHOLESTEROL 235 mg/dL; CREATININE 0.6 mg/dL (0.4-1.0); GFR - MDRD 105 (>89); GLUCOSE 105 mg/dL (70-100); HDL CHOLESTEROL 56 mg/dL; IRON 68 ug/dL (28-170); LDL CHOLESTEROL,CALCULATED 161 mg/dL; LDL/HDL RATIO 2.9 (<4.4); POTASSIUM 4.1 mmol/L (3.5-5.0); SODIUM 135 mmol/L (135-145); TOTAL IRON BINDING CAPACITY 353 ug/dL (250-450); TOTAL PROTEIN 7.2 g/dL (6.7-8.2); TRANSFERRIN 252 mg/dL (192-382); TRIGLYCERIDES 92 mg/dL; VLDL CHOLESTEROL 18 mg/dL
[2021-11-24 20:04] LABS: ESTIMATED AVERAGE GLUCOSE 111 mg/dL (70-100); HEMOGLOBIN A1c% 5.5 % (4.27-6.07)
[2021-11-24 20:09] LABS: THYROID STIMULATING HORMONE 2.71 uIU/mL (0.34-5.60)
[2021-11-24 20:14] LABS: FERRITIN 70.7 ng/mL (11.0-306.8)
[2021-11-26 09:21] LABS: NIL 0.05 IU/mL; TB1-NIL <0.00 IU/mL; TB2-NIL <0.00 IU/mL
== END 2021-11-24 12:07 | disposition home or self-care (01) ==
LOC: LAB.N 12:06
PROVIDERS: ATTEND Nurse Practitioner
DX: Z00.01 Encounter for general adult medical examination with abnormal findings (principal); Z13.220 Encounter for screening for lipoid disorders; Z86.2 Personal history of diseases of the blood and blood-forming organs and certain disorders involving the immune mechanism; Z13.1 Encounter for screening for diabetes mellitus; R53.83 Other fatigue; Z11.1 Encounter for screening for respiratory tuberculosis
CPT/HCPCS: 36415; 80053; 80061; 82728; 83036; 83540; 83721; 84443; 84466; 85025; 86480

== ENCOUNTER 2024-06-02 16:36 | Emergency (ER) | payer OTHER ==
[2024-06-02 17:19] VITALS: BP 127/65; O2SAT 100
--- NOTE | 2024-06-02 17:34 | XRAY Report ---
PROCEDURE: Hip w/Pelvis 2-3V LT INDICATIONS: left hip pain TECHNIQUE: 2 views of the hip were acquired. COMPARISON: None. FINDINGS: Bones: No fractures or dislocations. No suspicious bony lesions. Soft tissues: No suspicious soft tissue calcifications or masses. IMPRESSION: No acute bony abnormality. If pain persists with conservative management, consider repeat x-ray in 10 -14 days or cross-sectional imaging. Reviewed by: Reymundo Coon MD on 06/02/2024 5:33 PM PDT Approved by: Reymundo Coon MD on 06/02/2024 5:33 PM PDT Station ID: [id number]
--- NOTE | 2024-06-02 18:29 | ED Physician Documentation ---
PD HPI LOWER EXT INJURY - Stated complaint Stated Complaint: LT SIDE HIP PX - Chief complaint Chief Complaint: Trauma Ext - History obtained from History obtained from: Patient - Additional information Additional information: The patient comes to the emergency department chief complaint of left hip pain for the last 3 weeks. She states she fell about a month and a half ago and struck the left hip but really did not have any pain after that. She states a few weeks later, she began to notice out of the blue that she had some pain posterior to the hip joint. She states that it seemed worse if she would move certain ways in which shoot up into her low back and down into the back of her thigh. She states she has a history of sciatica and knows what that feels like but that this feels different. 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 - Present Medications Home Medications: Ambulatory Orders Medication Instructions Recorded Confirmed Ondansetron Odt [Zofran] 4 mg TL Q6H PRN #10 tablet 05/23/20 Albuterol Sulf [Ventolin Hfa 2 puffs PRN 03/18/21 Inhaler] Amitriptyline [Elavil] 1 tab QPM 03/18/21 03/18/21 Buspirone HCl 10 mg PO BID 03/18/21 03/18/21 DULoxetine [Cymbalta] 30 mg BID 03/18/21 03/18/21 Gabapentin [Neurontin] 300 mg PO HS 03/18/21 03/18/21 Omeprazole 40 mg PO DAILY 03/18/21 03/18/21 Oxycodone HCl/Acetaminophen 1 each PO Q6H PRN #20 tablet 03/18/21 [Percocet 7.5-325 mg Tablet] Pramipexole Di-HCl [Mirapex] 0.25 mg PO DAILY 03/18/21 03/18/21 Sucralfate [Carafate] 1 tablet PO ACHS 03/18/21 03/18/21 Sumatriptan Succinate [Imitrex] 1 tab PRN 03/18/21 oxyCODONE/ACET 5/325 [Percocet 5 1 tab PRN 03/18/21 mg/325 mg] Albuterol Sulf [Ventolin Hfa 1 - 2 puffs INH Q4HR PRN #1 inhaler 05/27/21 Inhaler] Azithromycin [Zithromax] 0 mg PO DAILY #6 tablet 05/27/21 dexAMETHasone [Decadron] 4 mg PO DAILY #4 tablet 05/27/21 HYDROcod/ACETAM 5/325 [[place] 5/325] 1 - 2 tablet PO Q6H PRN #14 tablet 06/02/24 - Allergies Allergies/Adverse Reactions: Allergies Allergy/AdvReac Type Severity Reaction Status Date / Time Sulfa (Sulfonamide Allergy Unknown Verified 06/02/24 17:09 Antibiotics) - Social History Does the pt smoke?: No Smoking Status: Never smoker Does the pt drink ETOH?: No Does the pt have substance abuse?: Yes - Immunizations Immunizations are current?: Yes - POLST Patient has POLST: No PD ED PE NORMAL - Vitals Vital signs reviewed: Yes - General General: Alert and oriented X 3, No acute distress, Well developed/nourished - HEENT HEENT: Atraumatic, EOMI, Moist mucous membranes - Neck Neck: Supple, no meningeal sign - Cardiac Cardiac: RRR, No murmur - Respiratory Respiratory: No respiratory distress, Clear bilaterally - Abdomen Abdomen: Soft, Non tender, Non distended - Derm Derm: Warm and dry - Extremities Extremities: No deformity - Neuro Neuro: Alert and oriented X 3 - Psych Psych: Normal mood, Normal affect Results - Vitals Vitals: Oxygen O2 Source Room air - Rads (name of study) L hip XR series Relevant Findings:: Final report received, See rad report (neg) PD Medical Decision Making - ED course Complexity details: reviewed results, re-evaluated patient, considered differential, d/w patient ED course: I discussed with the patient that and sounds that she most likely has a soft tissue inflammation/process of some sort that is causing her pain. She has not had a distinct injury anytime near the onset of her pain and I do not find any evidence on physical exam or x-ray of any bony process. I discussed with the patient Some symptomatic management at home that may help and that most likely, this will blow over on its own; however, if she has not noticed any improvement in the next couple of weeks, she will need to talk to her primary doctor about getting an MRI done for further evaluation. We have discussed the usual indications for return. Departure - Departure Disposition: 01 Home, Self Care Clinical Impression: Hip pain, left Condition: Stable Instructions: Osteoarthritis Common Sites, Trochanteric Bursitis Prescriptions: HYDROcod/ACETAM 5/325 [[place] 5/325] 1 - 2 tablet PO Q6H PRN #14 tablet PRN Reason: Pain Forms: PCP List Discharge Date/Time: 06/02/24 18:46
[2024-06-02] MEDS: DEXAMETHASONE 10 MG/ML VIAL IM STA (18:31)
[2024-06-02] MEDS: KETOROLAC 60 MG/2 ML VIAL IM STA (18:33)
== END 2024-06-02 18:46 | disposition home or self-care (01) ==
LOC: ED 16:36
DX: M25.552 Pain in left hip (principal); J45.909 Unspecified asthma, uncomplicated; Z79.899 Other long term (current) drug therapy
CPT/HCPCS: 96372; 99283